=== PATIENT | female | born 1990 | race Caucasian/White ===

== ENCOUNTER → 2019-02-07 | Outpatient (CLI) | payer BC ==
--- NOTE | 2019-02-13 09:33 | HM ---
HOLTER MONITOR REPORT 24 HOUR HOLTER MONITOR: A 24 Holter monitor shows sinus mechanism, heart ranging from 49-78 beats per minute. No significant bradycardia or pauses. No arrhythmias noted. IMPRESSION: Normal 24 Holter monitor recording. MMODL / IJN: [id number] /
== END | disposition home or self-care (01) ==
LOC: RADECHMAIN 11:56 → MERGE 12:00
PROVIDERS: ATTEND Internal Medicine
DX: R00.2 Palpitations (principal)
CPT/HCPCS: 93225; 93226